=== PATIENT | female | born 1950 | race African-American/Black ===

== ENCOUNTER 2020-12-11 19:35 | Emergency (ER) | payer MEDICARE, MEDICAID ==
[~2020-12-11] VITALS: Ht 167.6 cm; Wt 146.1 kg
[~2020-12-11 19:35] MED LIST: ASPI-543 PO; INSLANTI SC; INSREG3 IV; LISI2.5T47 PO
[2020-12-11] MEDS ORDERED: DEXTROSE (50%) 50ML SYRG IV ONE (20:30)
[2020-12-11 22:25] LABS: Basophils # (auto) 0 10 ^3/uL (0-0.2); Basophils % (auto) 0.3 % (0.0-2.0); Eosinophils # (auto) 0 10 ^3/uL (0-0.8); Eosinophils % (auto) 0.1 % (0.0-7.0); Hematocrit 37.6 % (36.0-46.0); Hemoglobin 12.4 g/dL (12.2-16.2); Lymphocytes # (auto) 0.7 10 ^3/uL (0.4-5.4); Lymphocytes % (auto) 9.9 % (10.0-50.0); Mean Corpuscular Hemoglobin 31.9 pg (28.0-32.0); Mean Corpuscular Volume 96.7 fL (80.0-100.0); Monocytes # (auto) 0.4 10 ^3/uL (0-1.3); Monocytes % (auto) 5.9 % (0.0-12.0); Neutrophils # (auto) 6.3 10 ^3/uL (1.6-8.6); Neutrophils % (auto) 83.8 % (37.0-80.0); Nucleated Red Blood Cells % 0.1 %; Red Blood Cells 3.89 10^6/uL (4.0-5.20); White Blood Cell 7.5 10^3/uL (4.4-10.8)
[2020-12-11 22:27] LABS: Albumin 3.5 g/dL (3.4-5.0); Calcium 9.4 mg/dL (8.5-10.1); Potassium 4.3 mmol/L (3.5-5.1)
[2020-12-11 22:36] LABS: BUN/Creatinine Ratio 14.7; Bilirubin, Total 0.4 mg/dL (0.2-1.0)
[2020-12-12 00:50] VITALS: BP 161/66
== END 2020-12-12 01:01 | disposition home or self-care (01) ==
LOC: ER 19:35
DX: E11.649 Type 2 diabetes mellitus with hypoglycemia without coma (principal); I10 Essential (primary) hypertension; E78.00 Pure hypercholesterolemia, unspecified; I25.2 Old myocardial infarction; Z79.82 Long term (current) use of aspirin; Z79.4 Long term (current) use of insulin; Z86.73 Personal history of transient ischemic attack (TIA), and cerebral infarction without residual deficits; Z95.1 Presence of aortocoronary bypass graft
CPT/HCPCS: 36415; 80053; 82962; 85025; 93005; 96374

== ENCOUNTER 2021-03-14 02:21 | Inpatient (IN) | payer MEDICARE, MEDICAID ==
[~2021-03-14] VITALS: Ht 170.2 cm; Wt 148.6 kg
[2021-03-14] MEDS ORDERED: DEXTROSE 10% 1,000 ML IV ONE (02:30)
[2021-03-14] MEDS ORDERED: DEXTROSE (50%) 50ML SYRG IV ONE (02:30)
[2021-03-14] MEDS: ACCU-CHEK COMFORT CURVE STRIP VI SCH ×13 (03:30→22:12)
[2021-03-14 03:34] LABS: Basophils # (auto) 0 10 ^3/uL (0-0.2); Basophils % (auto) 0.4 % (0.0-2.0); Eosinophils # (auto) 0.1 10 ^3/uL (0-0.8); Eosinophils % (auto) 1.2 % (0.0-7.0); Hematocrit 37.9 % (36.0-46.0); Hemoglobin 12.1 g/dL (12.2-16.2); Lymphocytes # (auto) 0.7 10 ^3/uL (0.4-5.4); Lymphocytes % (auto) 10.4 % (10.0-50.0); Mean Corpuscular Hemoglobin 30.6 pg (28.0-32.0); Mean Corpuscular Hgb Conc. 31.9 g/dL (32.0-36.0); Monocytes # (auto) 0.5 10 ^3/uL (0-1.3); Monocytes % (auto) 6.8 % (0.0-12.0); Neutrophils # (auto) 5.7 10 ^3/uL (1.6-8.6); Neutrophils % (auto) 81.2 % (37.0-80.0); Nucleated Red Blood Cells % 0.1 %; Red Blood Cells 3.94 10^6/uL (4.0-5.20); Red Cell Distribution Width 15.3 % (11.8-14.3); White Blood Cell 7.1 10^3/uL (4.4-10.8)
[2021-03-14 03:51] LABS: Albumin 3.2 g/dL (3.4-5.0); Calcium 8.9 mg/dL (8.5-10.1); Potassium 4.6 mmol/L (3.5-5.1)
[2021-03-14 03:54] LABS: Bilirubin, Total 0.4 mg/dL (0.2-1.0); Total Protein 7.4 g/dL (6.4-8.2)
[2021-03-14] MEDS ORDERED: LABETALOL HCL 5 MG/ML 4ML SYRINGE IV ONE (04:30)
[2021-03-14] MEDS ORDERED: MORPHINE SULFATE INJECTION 2 MG/ML SYRG IV PRN ×2 (08:30)
[2021-03-14] MEDS ORDERED: ACETAMINOPHEN 500 MG TAB PO PRN (08:30)
[2021-03-14] MEDS ORDERED: NITROGLYCERIN 0.4 MG SL TAB SL PRN (08:30)
[2021-03-14] MEDS ORDERED: ONDANSETRON HCL 4 MG/2 ML VIAL IV PRN (08:30)
[2021-03-14] MEDS: METOPROLOL TARTRATE 25 MG TAB PO SCH ×2 (09:27→22:15)
[2021-03-14] MEDS: LISINOPRIL 5 MG TAB PO SCH (09:27)
[2021-03-14] MEDS: ASPirin-EC 81 mg tab PO SCH (09:27)
[2021-03-14 10:48] LABS: Urine Bacteria FEW /hpf (None Seen); Urine Blood Negative /uL (Negative); Urine Specific Gravity 1.018 (1.001-1.035); Urine WBC 1 /hpf (0 - 5)
[2021-03-14] MEDS ORDERED: LISI40TA11 PO (11:06)
[2021-03-14] MEDS ORDERED: LOPERAMIDE HCL 2 MG CAP PO ONE (21:30)
[2021-03-15] MEDS: ACCU-CHEK COMFORT CURVE STRIP VI SCH ×9 (00:17→21:41)
[2021-03-15] MEDS ORDERED: DEXTROSE (50%) 50ML SYRG IV PRN (08:30)
[2021-03-15] MEDS: InsuLIN REG 1unit/0.01ml Soln (100units/ml) SC SCH ×4 (08:33→21:41)
[2021-03-15] MEDS: ASPirin-EC 81 mg tab PO SCH (08:43)
[2021-03-15] MEDS: METOPROLOL TARTRATE 25 MG TAB PO SCH ×2 (08:43→21:40)
[2021-03-15] MEDS: LISINOPRIL 5 MG TAB PO SCH (08:44)
[2021-03-15 13:00] VITALS: BP 159/95
[2021-03-15] MEDS ORDERED: INSULIN LANTUS (GLARGINE) 1 /0.01ml (100units/ml) SC ONE (14:30)
[2021-03-15 17:00] VITALS: BP 156/55
[2021-03-15] MEDS: HYDROcodone-ACET 5/325MG TAB PO PRN (21:40)
[2021-03-15 22:00] VITALS: BP 161/73
[2021-03-16 05:00] VITALS: BP 156/58
[2021-03-16] MEDS: ACCU-CHEK COMFORT CURVE STRIP VI SCH ×4 (06:55→22:47)
[2021-03-16] MEDS: InsuLIN REG 1unit/0.01ml Soln (100units/ml) SC SCH ×4 (06:55→22:49)
[2021-03-16] MEDS: hydrALAZINE HCL 20 MG/ML VL IV PRN ×2 (06:56→17:47)
[2021-03-16 09:00] VITALS: BP 141/60
[2021-03-16] MEDS: ASPirin-EC 81 mg tab PO SCH (10:01)
[2021-03-16] MEDS: METOPROLOL TARTRATE 25 MG TAB PO SCH ×2 (10:02→22:37)
[2021-03-16] MEDS: LISINOPRIL 5 MG TAB PO SCH (10:02)
[2021-03-16] MEDS ORDERED: LOPERAMIDE HCL 2 MG CAP PO ONE (11:45)
[2021-03-16 12:42] VITALS: BP 154/57
[2021-03-16 16:54] VITALS: BP 167/68
[2021-03-16] MEDS: HYDROcodone-ACET 5/325MG TAB PO PRN (20:18)
[2021-03-16 22:18] VITALS: BP 183/63
[2021-03-17] MEDS: hydrALAZINE HCL 20 MG/ML VL IV PRN (00:10)
[2021-03-17 05:23] VITALS: BP 143/45
[2021-03-17] MEDS: ACCU-CHEK COMFORT CURVE STRIP VI SCH ×3 (06:28→17:11)
[2021-03-17] MEDS: InsuLIN REG 1unit/0.01ml Soln (100units/ml) SC SCH ×3 (06:29→17:14)
[2021-03-17 06:50] LABS: BUN/Creatinine Ratio 14.1; Calcium 9.3 mg/dL (8.5-10.1); Potassium 3.9 mmol/L (3.5-5.1)
[2021-03-17 08:46] VITALS: BP 159/56
[2021-03-17] MEDS: ASPirin-EC 81 mg tab PO SCH (09:14)
[2021-03-17] MEDS: METOPROLOL TARTRATE 25 MG TAB PO SCH (10:00)
[2021-03-17] MEDS: LISINOPRIL 5 MG TAB PO SCH (10:00)
[2021-03-17] MEDS ORDERED: INSULIN LANTUS (GLARGINE) 1 /0.01ml (100units/ml) SC SCH (10:00)
[2021-03-17 12:49] VITALS: BP 120/46
[2021-03-17 16:43] VITALS: BP 178/65
[2021-03-17 17:16] VITALS: BP 156/46
[2021-03-17 17:42] VITALS: BP 156/46
== END 2021-03-17 19:21 | disposition home or self-care (01) | DRG 420 ==
LOC: ER 02:24 → TELE 08:22 → TELE-WESTW 03-15 12:20
PROVIDERS: ADMIT Nurse Practitioner Acute Care; ATTEND Internal Medicine
DX: E11.649 Type 2 diabetes mellitus with hypoglycemia without coma (principal); G93.41 Metabolic encephalopathy; I10 Essential (primary) hypertension; E66.01 Morbid (severe) obesity due to excess calories; Z20.822 Contact with and (suspected) exposure to COVID-19; I25.10 Atherosclerotic heart disease of native coronary artery without angina pectoris; Z79.4 Long term (current) use of insulin; Z79.899 Other long term (current) drug therapy; Z82.3 Family history of stroke; Z82.49 Family history of ischemic heart disease and other diseases of the circulatory system; Z83.3 Family history of diabetes mellitus; Z86.73 Personal history of transient ischemic attack (TIA), and cerebral infarction without residual deficits; Z95.1 Presence of aortocoronary bypass graft; Z68.43 Body mass index [BMI] 50.0-59.9, adult; I25.2 Old myocardial infarction
CPT/HCPCS: 36415; 74176; 80048; 80053; 81001; 82962; 83036; 85025; 87045; 87426; 87427; 87493; 93005; 96361; 96374; 96375; G0378; J1815; J3490